=== PATIENT | female | born 1930 | race Caucasian/White ===

== ENCOUNTER 2019-01-22 01:45 | Inpatient (IN) | payer MEDICARE, OTHER ==
[2019-01-22 02:09] LABS: WHITE BLOOD COUNT 4.9 10^3/ul (4.8-10.8)
[2019-01-22 02:09] LABS: ABNORMAL IP MESSAGE 1; HEMOGLOBIN 7.7 g/dl (12.0-16.0); MEAN CORPUSCULAR HEMOGLOBIN 32.8 pg (29.0-33.0); MEAN CORPUSCULAR HGB CONC 32.1 g/dl (32.0-37.0); MEAN CORPUSCULAR VOLUME 102.1 fl (82.0-101.0); MEAN PLATELET VOLUME 8.7 fl (7.4-10.4); PLATELET COUNT 90 10^3/UL (140-415); RED BLOOD COUNT 2.35 10^6/ul (4.20-5.40); RED CELL DISTRIBUTION WIDTH 15.9 % (11.5-14.5)
[2019-01-22] MEDS: SOD CHLORIDE 0.9% 1,000 ML IV ×2 (02:17→10:00)
[2019-01-22] MEDS: CEFEPIME 2GM/50 ML (PMX) 50 ML IVPB (02:17)
[2019-01-22 02:26] LABS: ADD MAN DIFF? YES; POSITIVE DIFF @See below
[2019-01-22 02:28] LABS: INR 1.41; PROTIME 17.4 Sec (11.9-14.9); PT RATIO 1.4
[2019-01-22 02:29] LABS: PARTIAL THROMBOPLASTIN TIME 44.1 Sec (23.0-35.0)
[2019-01-22] MEDS: ALBUTEROL/IPRATROPIUM (NEB) 3 ML AMP HHN (02:35)
[2019-01-22] MEDS: VANCOMYCIN 1 GM (PMX) 250 ML IVPB (02:46)
[2019-01-22 03:01] LABS: ALANINE AMINOTRANSFERASE 20 IU/L (13-69); ALBUMIN 2.3 g/dl (3.3-4.9); ALBUMIN/GLOBULIN RATIO 0.63; ALKALINE PHOSPHATASE 67 IU/L (42-121); ANION GAP 2 (5-13); ASPARTATE AMINO TRANSFERASE 18 IU/L (15-46); BILIRUBIN,INDIRECT 0.6 mg/dl (0-1.1); BILIRUBIN,TOTAL 0.6 mg/dl (0.2-1.3); BLOOD UREA NITROGEN 28 mg/dl (7-20); CALCIUM 7.7 mg/dl (8.4-10.2); CARBON DIOXIDE 31 mmol/L (21-31); CHLORIDE 102 mmol/L (97-110); CREATININE 0.89 mg/dl (0.44-1.00); GLUCOSE 123 mg/dl (70-220); POTASSIUM 3.8 mmol/L (3.5-5.1); SODIUM 135 mmol/L (135-144); TOTAL PROTEIN 5.9 g/dl (6.1-8.1)
[2019-01-22 03:10] LABS: B-TYPE NATRIURETIC PEPTIDE 2450 PG/ML (0-450)
[2019-01-22 03:12] LABS: TROPONIN-I < 0.012 ng/ml (0.000-0.120)
[2019-01-22 03:17] LABS: BAND NEUTROPHILS #M 1.2 10^3/ul (0.0-0.6); BAND NEUTROPHILS % (M) 26 % (0-4); BASOPHILS % (M) 1 % (0-2); BURR CELLS 1+ (0-0); LYMPHOCYTES #M 1.1 10^3/ul (0.8-2.9); LYMPHOCYTES % (M) 24 % (15-51); METAMYELOCYTES %M 1 % (0-0); MONOCYTE #M 0.7 10^3/ul (0.3-0.9); MONOCYTES % (M) 15 % (0-11); MYELOCYTES % (M) 1 % (0-0); OVALOCYTES 1+ (0-0); PLASMAC%(M) 1 % (0); PLATELET ESTIMATE DECREASED; POIKILOCYTOSIS 1+ (0-0); POLYCHROMASIA 1+ (0-0); SEG NEUT #M 1.5 10^3/ul (1.6-7.5); SEGMENTED NEUTROPHILS (M) % 30 % (39-77); SMUDGE%M 12 % (0-0)
[2019-01-22] MEDS ORDERED: ACETAMINOPHEN 325 MG TAB PO (04:00)
[2019-01-22] MEDS ORDERED: ONDANSETRON 4 MG INJ IV ×2 (04:00→10:00)
[2019-01-22] MEDS ORDERED: NACL 0.9% 3 ML SYG IV (10:00)
[2019-01-22 10:32] LABS: AADO2 Arterial 568.1 mmHg (7.0-24.0); Allen Test ACCEPTAB; Arterial Base Excess 1.6 mmol/L (-3.0-3); Arterial Blood Gas Oxygen Sat 95.5 mmHG (95.0-100.0); Arterial COHb 0.3 % (0.0-3.0); Arterial HCO3 27.2 mmol/L (22.0-26.0); Arterial MetHb 0.2 % (0.0-1.5); Arterial pCO2 47.2 mmhg (35-45); MODE MASK - NRB; Site Right Radial
[2019-01-22] MEDS: PANTOPRAZOLE 40 MG INJ IV (11:00)
[2019-01-22] MEDS: CEFEPIME 1GM/50 ML (PMX) 50 ML IVPB (14:18)
[2019-01-22] MEDS: ACETAMINOPHEN 325 MG TAB PO (16:47)
[2019-01-22] MEDS ORDERED: OCULAR LUBRICANT 3.5 GM OPH OINT BOTH EYES (17:30)
[2019-01-22] MEDS: DOCUSATE SODIUM 250 MG CAP PO (21:04)
[2019-01-22] MEDS: GABAPENTIN 100 MG CAP PO (21:04)
[2019-01-23] MEDS ORDERED: VANCOMYCIN IV PER PHARMACY XX (03:00)
[2019-01-23] MEDS: CEFEPIME 1GM/50 ML (PMX) 50 ML IVPB ×2 (03:03→13:29)
[2019-01-23] MEDS: VANCOMYCIN 750 MG (PMX) 250 ML IVPB (03:33)
[2019-01-23] MEDS: traMADol 50 MG TAB PO (04:12)
[2019-01-23] MEDS: ALBUTEROL/IPRATROPIUM (NEB) 3 ML AMP HHN (05:24)
[2019-01-23 05:39] LABS: WHITE BLOOD COUNT 6.7 10^3/ul (4.8-10.8)
[2019-01-23 05:39] LABS: HEMATOCRIT 30.9 % (37.0-47.0); HEMOGLOBIN 9.6 g/dl (12.0-16.0); MEAN CORPUSCULAR HEMOGLOBIN 31.9 pg (29.0-33.0); MEAN CORPUSCULAR HGB CONC 31.1 g/dl (32.0-37.0); MEAN CORPUSCULAR VOLUME 102.7 fl (82.0-101.0); MEAN PLATELET VOLUME 8.9 fl (7.4-10.4); PLATELET COUNT 148 10^3/UL (140-415); RED BLOOD COUNT 3.01 10^6/ul (4.20-5.40); RED CELL DISTRIBUTION WIDTH 15.7 % (11.5-14.5)
[2019-01-23 05:47] LABS: ADD MAN DIFF? YES; POSITIVE DIFF @See below
[2019-01-23 05:57] LABS: IRON 20 ug/dl (35-150)
[2019-01-23 06:01] LABS: ALANINE AMINOTRANSFERASE 16 IU/L (13-69); ALBUMIN 2.7 g/dl (3.3-4.9); ALBUMIN/GLOBULIN RATIO 0.62; ALKALINE PHOSPHATASE 88 IU/L (42-121); ANION GAP 4 (5-13); ASPARTATE AMINO TRANSFERASE 12 IU/L (15-46); BILIRUBIN,INDIRECT 0.4 mg/dl (0-1.1); BILIRUBIN,TOTAL 0.4 mg/dl (0.2-1.3); BLOOD UREA NITROGEN 18 mg/dl (7-20); CALCIUM 8.6 mg/dl (8.4-10.2); CARBON DIOXIDE 29 mmol/L (21-31); CHLORIDE 109 mmol/L (97-110); CHOL/HDL RATIO 4.7 RATIO; CHOLESTEROL 105 mg/dl (100-200); GLUCOSE 112 mg/dl (70-220); HDL CHOLESTEROL 22 mg/dl (33-92); LDL CHOLESTEROL,CALCULATED 66 mg/dl; MAGNESIUM 1.8 mg/dl (1.7-2.5); POTASSIUM 3.5 mmol/L (3.5-5.1); SODIUM 142 mmol/L (135-144); TRIGLYCERIDES 85 mg/dl (0-149)
[2019-01-23 06:07] LABS: % IRON SATURATION 12 % SAT (22-52); TOTAL IRON BINDING CAPACITY 162 ug/dl (241-421)
[2019-01-23 06:12] LABS: IMMEDIATE SPIN CROSSMATCH 1 3
[2019-01-23 06:26] LABS: HEMOGLOBIN A1C 5.3 % (0-5.9)
[2019-01-23] MEDS: LEVOTHYROXINE 100 MCG TAB PO (06:35)
[2019-01-23] MEDS: PANTOPRAZOLE 40 MG INJ IV (06:35)
[2019-01-23 07:53] LABS: ANISOCYTOSIS 1+ (0-0); BAND NEUTROPHILS #M 1.7 10^3/ul (0.0-0.6); BAND NEUTROPHILS % (M) 26 % (0-4); EOSINOPHILS % (M) 3 % (0-7); ERYTHROBLAST% (NRBC) (M) 1 % (0-0); GIANT THROMBO% (M) 1 % (0-0); LYMPHOCYTES #M 0.9 10^3/ul (0.8-2.9); LYMPHOCYTES % (M) 14 % (15-51); METAMYELOCYTES #M 0.1 10^3/ul (0.0-0.0); METAMYELOCYTES %M 2 % (0-0); MONOCYTE #M 0.8 10^3/ul (0.3-0.9); MONOCYTES % (M) 13 % (0-11); MYELOCYTES #M 0.2 10^3/ul (0.0-0.0); MYELOCYTES % (M) 3 % (0-0); PLATELET ESTIMATE NORMAL; POIKILOCYTOSIS 1+ (0-0); SEG NEUT #M 2.7 10^3/ul (1.6-7.5); SEGMENTED NEUTROPHILS (M) % 39 % (39-77); SMUDGE%M 15 % (0-0)
[2019-01-23] MEDS: FUROSEMIDE 20 MG TAB PO (08:41)
[2019-01-23] MEDS: ASPIRIN (EC) 81 MG TAB PO (08:41)
[2019-01-23] MEDS: DOCUSATE SODIUM 250 MG CAP PO ×2 (08:41→21:10)
[2019-01-23] MEDS: ASCORBIC ACID 500 MG TAB PO (08:41)
[2019-01-23] MEDS: hydrALAzine 20 MG INJ IV (08:42)
[2019-01-23] MEDS: GABAPENTIN 100 MG CAP PO ×3 (08:43→21:10)
[2019-01-23] MEDS: POTASSIUM CHLORIDE 20 MEQ POWDER FOR ORAL SOLN PO (09:56)
[2019-01-23] MEDS: AMLODIPINE 5 MG TAB PO ×2 (09:56→21:10)
[2019-01-23] MEDS: LOSARTAN 50 MG TAB PO (09:57)
[2019-01-23] MEDS: FENTAnyl PATCH 12 MCG/HR TRANSDERM (10:07)
[2019-01-23] MEDS: FUROSEMIDE 20 MG INJ IV (11:26)
[2019-01-23] MEDS: SOD FERRIC GLUC COMPLX 125 MG in SOD CHLORIDE 0.9% 100 ML IVPB (13:28)
[2019-01-23] MEDS: FUROSEMIDE 40 MG INJ IV (19:03)
[2019-01-24] MEDS: CEFEPIME 1GM/50 ML (PMX) 50 ML IVPB ×2 (02:22→13:01)
[2019-01-24] MEDS: VANCOMYCIN 750 MG (PMX) 250 ML IVPB (02:54)
[2019-01-24] MEDS: PANTOPRAZOLE 40 MG INJ IV (05:23)
[2019-01-24] MEDS: FUROSEMIDE 40 MG INJ IV ×2 (05:23→17:34)
[2019-01-24] MEDS: LEVOTHYROXINE 100 MCG TAB PO (05:31)
[2019-01-24 05:49] LABS: ABNORMAL IP MESSAGE 1; HEMATOCRIT 37.4 % (37.0-47.0); HEMOGLOBIN 11.8 g/dl (12.0-16.0); MEAN CORPUSCULAR HEMOGLOBIN 30.6 pg (29.0-33.0); MEAN CORPUSCULAR HGB CONC 31.6 g/dl (32.0-37.0); MEAN CORPUSCULAR VOLUME 96.9 fl (82.0-101.0); MEAN PLATELET VOLUME 8.8 fl (7.4-10.4); PLATELET COUNT 116 10^3/UL (140-415); RED BLOOD COUNT 3.86 10^6/ul (4.20-5.40); RED CELL DISTRIBUTION WIDTH 19.6 % (11.5-14.5)
[2019-01-24 05:53] LABS: ADD MAN DIFF? YES; POSITIVE DIFF @See below
[2019-01-24 06:18] LABS: ALBUMIN 2.7 g/dl (3.3-4.9); ANION GAP 3 (5-13); BLOOD UREA NITROGEN 15 mg/dl (7-20); CALCIUM 8.4 mg/dl (8.4-10.2); CARBON DIOXIDE 35 mmol/L (21-31); CHLORIDE 102 mmol/L (97-110); CREATININE 0.58 mg/dl (0.44-1.00); GLUCOSE 138 mg/dl (70-220); MAGNESIUM 1.6 mg/dl (1.7-2.5); PHOSPHORUS 2.9 mg/dl (2.5-4.9); SODIUM 140 mmol/L (135-144)
[2019-01-24 06:57] LABS: POTASSIUM 2.9 mmol/L (3.5-5.1)
[2019-01-24 07:36] LABS: ANISOCYTOSIS 1+ (0-0); BAND NEUTROPHILS #M 2.9 10^3/ul (0.0-0.6); BAND NEUTROPHILS % (M) 29 % (0-4); EOSINOPHILS % (M) 1 % (0-7); LYMPHOCYTES #M 1.1 10^3/ul (0.8-2.9); LYMPHOCYTES % (M) 11 % (15-51); METAMYELOCYTES #M 0.1 10^3/ul (0.0-0.0); METAMYELOCYTES %M 1 % (0-0); MONOCYTE #M 0.5 10^3/ul (0.3-0.9); MONOCYTES % (M) 5 % (0-11); MYELOCYTES #M 0.2 10^3/ul (0.0-0.0); MYELOCYTES % (M) 2 % (0-0); OVALOCYTES 1+ (0-0); PLATELET ESTIMATE DECREASED; REACTIVE LYMPHOCYTES #M 0.5 10^3/ul (0.0-0.0); REACTIVE LYMPHOCYTES% (M) 5 % (0-0); SEG NEUT #M 4.9 10^3/ul (1.6-7.5); SEGMENTED NEUTROPHILS (M) % 46 % (39-77); SMUDGE%M 31 % (0-0)
[2019-01-24] MEDS: POTASSIUM CHLORIDE 20 MEQ POWDER FOR ORAL SOLN PO (09:34)
[2019-01-24] MEDS: ASCORBIC ACID 500 MG TAB PO (09:34)
[2019-01-24] MEDS: DOCUSATE SODIUM 250 MG CAP PO ×2 (09:34→21:17)
[2019-01-24] MEDS: AMLODIPINE 5 MG TAB PO ×2 (09:35→21:18)
[2019-01-24] MEDS: POTASSIUM CHLORIDE 100 ML IVPB (09:36)
[2019-01-24] MEDS: ASPIRIN (EC) 81 MG TAB PO (09:36)
[2019-01-24] MEDS: GABAPENTIN 100 MG CAP PO ×3 (09:36→21:18)
[2019-01-24] MEDS: LOSARTAN 50 MG TAB PO (09:36)
[2019-01-24] MEDS: MAGNESIUM SULFATE 2 GM/50 ML 50 ML IVPB (09:37)
[2019-01-24] MEDS: SOD FERRIC GLUC COMPLX 125 MG in SOD CHLORIDE 0.9% 100 ML IVPB (13:00)
[2019-01-24 14:54] LABS: POTASSIUM 3.4 mmol/L (3.5-5.1)
[2019-01-24] MEDS: COLLAGENASE 5 GM (UD JAR) TOP (17:33)
[2019-01-25] MEDS: CEFEPIME 1GM/50 ML (PMX) 50 ML IVPB ×2 (01:31→15:55)
[2019-01-25 02:32] LABS: VANCOMYCIN,TROUGH 6.2 ug/ml (10.0-20.0)
[2019-01-25] MEDS: VANCOMYCIN 750 MG (PMX) 250 ML IVPB ×2 (03:01→16:50)
[2019-01-25] MEDS: FUROSEMIDE 40 MG INJ IV ×2 (05:37→18:18)
[2019-01-25] MEDS: PANTOPRAZOLE 40 MG INJ IV (05:37)
[2019-01-25] MEDS: LEVOTHYROXINE 100 MCG TAB PO (05:38)
[2019-01-25 05:41] LABS: ADD MAN DIFF? NO
[2019-01-25 05:47] LABS: ABNORMAL IP MESSAGE 1; BASOPHIL # 0.1 10^3/ul (0.0-0.1); BASOPHILS % 0.7 % (0.0-2.0); EOSINOPHILS # 0.2 10^3/ul (0.0-0.5); EOSINOPHILS % 1.9 % (0.0-7.0); HEMATOCRIT 35.8 % (37.0-47.0); HEMOGLOBIN 11.3 g/dl (12.0-16.0); LYMPHOCYTES # 1.3 10^3/ul (0.8-2.9); LYMPHOCYTES % 14.3 % (15.0-51.0); MEAN CORPUSCULAR HEMOGLOBIN 30.5 pg (29.0-33.0); MEAN CORPUSCULAR HGB CONC 31.6 g/dl (32.0-37.0); MEAN CORPUSCULAR VOLUME 96.8 fl (82.0-101.0); MEAN PLATELET VOLUME 10.1 fl (7.4-10.4); MONOCYTE # 0.8 10^3/ul (0.3-0.9); MONOCYTES % 8.9 % (0.0-11.0); NEUTROPHIL # 6.6 10^3/ul (1.6-7.5); NEUTROPHILS % 72.4 % (39.0-77.0); PLATELET COUNT 94 10^3/UL (140-415); RED CELL DISTRIBUTION WIDTH 18.4 % (11.5-14.5)
[2019-01-25 05:47] LABS: WHITE BLOOD COUNT 9.1 10^3/ul (4.8-10.8)
[2019-01-25 06:10] LABS: ALBUMIN 2.6 g/dl (3.3-4.9); ANION GAP 1 (5-13); BLOOD UREA NITROGEN 18 mg/dl (7-20); CALCIUM 8.7 mg/dl (8.4-10.2); CARBON DIOXIDE 39 mmol/L (21-31); CHLORIDE 99 mmol/L (97-110); CREATININE 0.55 mg/dl (0.44-1.00); GLUCOSE 126 mg/dl (70-220); MAGNESIUM 1.9 mg/dl (1.7-2.5); SODIUM 139 mmol/L (135-144)
[2019-01-25 06:24] LABS: POTASSIUM 2.9 mmol/L (3.5-5.1)
[2019-01-25 07:39] LABS: POSITIVE DIFF @See below
[2019-01-25 07:40] LABS: Allen Test ACCEPTAB; Arterial Base Excess 11.4 mmol/L (-3.0-3); Arterial COHb 1.1 % (0.0-3.0); Arterial Fraction of Oxyhgb 90.7 % (93.0-99.0); Arterial HCO3 36.7 mmol/L (22.0-26.0); Arterial MetHb 0.3 % (0.0-1.5); Arterial pCO2 50.3 mmhg (35-45); MODE HFNC; Site Right Radial
[2019-01-25] MEDS: POTASSIUM CHLORIDE 20 MEQ POWDER FOR ORAL SOLN PO (09:28)
[2019-01-25] MEDS: LOSARTAN 50 MG TAB PO (09:30)
[2019-01-25] MEDS: ASPIRIN (EC) 81 MG TAB PO (09:30)
[2019-01-25] MEDS: AMLODIPINE 5 MG TAB PO ×2 (09:30→20:44)
[2019-01-25] MEDS: POTASSIUM PHOSPHATE 40 MEQ in SOD CHLORIDE 0.9% 250 ML IVPB (09:30)
[2019-01-25] MEDS: DOCUSATE SODIUM 250 MG CAP PO ×2 (09:30→20:44)
[2019-01-25] MEDS: GABAPENTIN 100 MG CAP PO ×3 (09:30→20:43)
[2019-01-25] MEDS: ASCORBIC ACID 500 MG TAB PO ×2 (09:30→20:44)
[2019-01-25] MEDS: COLLAGENASE 5 GM (UD JAR) TOP (09:31)
[2019-01-25] MEDS: SOD FERRIC GLUC COMPLX 125 MG in SOD CHLORIDE 0.9% 100 ML IVPB (13:57)
[2019-01-26] MEDS: CEFEPIME 1GM/50 ML (PMX) 50 ML IVPB ×2 (01:26→18:36)
[2019-01-26] MEDS: ACETAMINOPHEN 325 MG TAB PO (02:01)
[2019-01-26 02:35] LABS: VANCOMYCIN,TROUGH 14.1 ug/ml (10.0-20.0)
[2019-01-26] MEDS: VANCOMYCIN 750 MG (PMX) 250 ML IVPB ×2 (02:45→21:02)
[2019-01-26 05:44] LABS: ADD MAN DIFF? NO
[2019-01-26 05:46] LABS: ABNORMAL IP MESSAGE 1; BASOPHILS % 0.3 % (0.0-2.0); EOSINOPHILS # 0.2 10^3/ul (0.0-0.5); HEMOGLOBIN 10.8 g/dl (12.0-16.0); LYMPHOCYTES # 1.6 10^3/ul (0.8-2.9); LYMPHOCYTES % 17.6 % (15.0-51.0); MEAN CORPUSCULAR HEMOGLOBIN 30.8 pg (29.0-33.0); MEAN CORPUSCULAR HGB CONC 30.9 g/dl (32.0-37.0); MEAN CORPUSCULAR VOLUME 99.7 fl (82.0-101.0); MEAN PLATELET VOLUME 9.6 fl (7.4-10.4); MONOCYTE # 0.8 10^3/ul (0.3-0.9); MONOCYTES % 9.1 % (0.0-11.0); NEUTROPHIL # 6.2 10^3/ul (1.6-7.5); NEUTROPHILS % 68.1 % (39.0-77.0); PLATELET COUNT 87 10^3/UL (140-415); RED BLOOD COUNT 3.51 10^6/ul (4.20-5.40)
[2019-01-26] MEDS: FUROSEMIDE 40 MG INJ IV ×2 (05:46→18:39)
[2019-01-26] MEDS: LEVOTHYROXINE 100 MCG TAB PO (05:47)
[2019-01-26] MEDS: PANTOPRAZOLE 40 MG INJ IV (05:47)
[2019-01-26 05:48] LABS: POSITIVE DIFF @See below
[2019-01-26 06:13] LABS: ALBUMIN 2.7 g/dl (3.3-4.9); ANION GAP 0 (5-13); BLOOD UREA NITROGEN 18 mg/dl (7-20); CALCIUM 8.7 mg/dl (8.4-10.2); CARBON DIOXIDE 40 mmol/L (21-31); CHLORIDE 100 mmol/L (97-110); CREATININE 0.56 mg/dl (0.44-1.00); GLUCOSE 130 mg/dl (70-220); MAGNESIUM 1.7 mg/dl (1.7-2.5); PHOSPHORUS 3.1 mg/dl (2.5-4.9); POTASSIUM 3.2 mmol/L (3.5-5.1); SODIUM 140 mmol/L (135-144)
[2019-01-26] MEDS: LOSARTAN 50 MG TAB PO (09:27)
[2019-01-26] MEDS: DOCUSATE SODIUM 250 MG CAP PO ×2 (09:27→21:02)
[2019-01-26] MEDS: MAGNESIUM SULFATE 2 GM/50 ML 50 ML IVPB (09:27)
[2019-01-26] MEDS: GABAPENTIN 100 MG CAP PO ×3 (09:28→21:03)
[2019-01-26] MEDS: ASPIRIN (EC) 81 MG TAB PO (09:28)
[2019-01-26] MEDS: ASCORBIC ACID 500 MG TAB PO ×2 (09:29→21:04)
[2019-01-26] MEDS: COLLAGENASE 5 GM (UD JAR) TOP (09:29)
[2019-01-26] MEDS: AMLODIPINE 5 MG TAB PO ×2 (09:29→21:03)
[2019-01-26] MEDS: MULTIVITAMINS THERAPEUTIC TAB PO (09:29)
[2019-01-26] MEDS: ZINC SULFATE 220 MG CAP PO (09:29)
[2019-01-26] MEDS: BALSAM PERU/CASTOR OIL 60 GM TUBE TOP (09:30)
[2019-01-26] MEDS: POTASSIUM CHLORIDE 20 MEQ POWDER FOR ORAL SOLN PO ×2 (10:05→21:03)
[2019-01-26] MEDS: POTASSIUM CHLORIDE 100 ML IVPB ×2 (12:09→14:23)
[2019-01-26] MEDS: FENTAnyl PATCH 12 MCG/HR TRANSDERM (12:20)
[2019-01-26 15:00] LABS: VANCOMYCIN,TROUGH 15.5 ug/ml (10.0-20.0)
[2019-01-26] MEDS: SOD FERRIC GLUC COMPLX 125 MG in SOD CHLORIDE 0.9% 100 ML IVPB (16:26)
[2019-01-26] MEDS: hydrALAzine 20 MG INJ IV (16:29)
[2019-01-26] MEDS: LIDOCAINE 1% (MPF) 5 ML VIAL ×2 (18:08)
[2019-01-27] MEDS: CEFEPIME 1GM/50 ML (PMX) 50 ML IVPB (02:18)
[2019-01-27] MEDS: LEVOTHYROXINE 100 MCG TAB PO (05:40)
[2019-01-27] MEDS: PANTOPRAZOLE 40 MG INJ IV (05:40)
[2019-01-27] MEDS: FUROSEMIDE 40 MG INJ IV (05:41)
[2019-01-27] MEDS: VANCOMYCIN 750 MG (PMX) 250 ML IVPB (08:12)
[2019-01-27] MEDS: ASPIRIN (EC) 81 MG TAB PO (08:20)
[2019-01-27] MEDS: LOSARTAN 50 MG TAB PO (08:20)
[2019-01-27] MEDS: GABAPENTIN 100 MG CAP PO (08:20)
[2019-01-27] MEDS: DOCUSATE SODIUM 250 MG CAP PO (08:20)
[2019-01-27] MEDS: MULTIVITAMINS THERAPEUTIC TAB PO (08:21)
[2019-01-27] MEDS: ASCORBIC ACID 500 MG TAB PO (08:21)
[2019-01-27] MEDS: AMLODIPINE 5 MG TAB PO (08:21)
[2019-01-27] MEDS: POTASSIUM CHLORIDE 20 MEQ POWDER FOR ORAL SOLN PO (08:21)
[2019-01-27] MEDS: ZINC SULFATE 220 MG CAP PO (08:21)
[2019-01-27] MEDS: COLLAGENASE 5 GM (UD JAR) TOP (08:22)
[2019-01-27] MEDS: BALSAM PERU/CASTOR OIL 60 GM TUBE TOP (08:22)
[2019-01-27] MEDS: ENOXAPARIN 30 MG/0.3 ML SYG SC (08:57)
[2019-01-27] MEDS: ALBUTEROL/IPRATROPIUM (NEB) 3 ML AMP HHN (11:00)
== END 2019-01-27 11:50 | DRG 871 ==
LOC: 6WM 18:02 → E/R 01:45 → 6WM 19:19
PROVIDERS: Internal Medicine
PROC: 3E0F7GC Introduction of Other Therapeutic Substance into Respiratory Tract, Via Natural or Artificial Opening (ICD-10-PCS; 2019-01-22)
PROC: 30233N1 Transfusion of Nonautologous Red Blood Cells into Peripheral Vein, Percutaneous Approach (ICD-10-PCS; 2019-01-23)
PROC: 0W9930Z Drainage of Right Pleural Cavity with Drainage Device, Percutaneous Approach (ICD-10-PCS; principal; 2019-01-26)
DX: A41.9 Sepsis, unspecified organism (principal); J18.9 Pneumonia, unspecified organism; J96.01 Acute respiratory failure with hypoxia; I50.43 Acute on chronic combined systolic (congestive) and diastolic (congestive) heart failure; J90 Pleural effusion, not elsewhere classified; I95.9 Hypotension, unspecified; D69.6 Thrombocytopenia, unspecified; E86.0 Dehydration; I11.0 Hypertensive heart disease with heart failure; I34.2 Nonrheumatic mitral (valve) stenosis; D50.9 Iron deficiency anemia, unspecified; E87.6 Hypokalemia; J45.909 Unspecified asthma, uncomplicated; Y95 Nosocomial condition; Z79.82 Long term (current) use of aspirin; Z95.2 Presence of prosthetic heart valve; Z85.79 Personal history of other malignant neoplasms of lymphoid, hematopoietic and related tissues
CPT/HCPCS: 32555; 36415; 36430; 36600; 71045; 80053; 80061; 80069; 80202; 82728; 82803; 83036; 83540; 83605; 83735; 83880; 84132; 84443; 84484; 85025; 85610; 85730; 86850; 86900; 86901; 86920; 87040-91; 87081; 93005; 93306; 94640; 94664; 94667; 96374; 96375; 99285-25